=== PATIENT | male | born 1990 ===

== ENCOUNTER 2025-05-19 11:41 | Emergency (ER) | payer MEDICAID, OTHER ==
[~2025-05-19] VITALS: Ht 160 cm; Wt 68.0 kg
[2025-05-19 11:42] VITALS: BP 136/85; PULSE 109; RESP 17; TEMP 98.2; O2SAT 96
== END 2025-05-19 12:37 | disposition left against medical advice (07) ==
LOC: ER 11:41
DX: M25.561 Pain in right knee (principal); Z53.21 Procedure and treatment not carried out due to patient leaving prior to being seen by health care provider

== ENCOUNTER 2025-05-30 21:33 | Emergency (ER) | payer MEDICAID ==
[~2025-05-30] VITALS: Ht 160 cm; Wt 68.9 kg
[2025-05-30 21:35] VITALS: BP 136/77; PULSE 111; RESP 16; TEMP 98.3; O2SAT 95
[2025-05-30] MEDS ORDERED: ACETAMINOPHEN 325 MG TAB PO ONE (22:00)
[2025-05-30] MEDS ORDERED: KETOROLAC TROMETH 30 MG/ML 1ML VIAL IM ONE (22:00)
== END 2025-05-30 23:31 | disposition left against medical advice (07) ==
LOC: ER 21:33
DX: R10.9 Unspecified abdominal pain (principal); Z53.21 Procedure and treatment not carried out due to patient leaving prior to being seen by health care provider

== ENCOUNTER 2025-09-26 12:01 | Emergency (ER) | payer MEDICAID, OTHER ==
[~2025-09-26] VITALS: Ht 160 cm; Wt 72.8 kg
[2025-09-26 12:03] VITALS: BP 146/91; PULSE 110; RESP 18; TEMP 97.8; O2SAT 95
== END 2025-09-26 14:39 | disposition left against medical advice (07) ==
LOC: ER 12:01
DX: M79.89 Other specified soft tissue disorders (principal); Z53.21 Procedure and treatment not carried out due to patient leaving prior to being seen by health care provider

== ENCOUNTER 2025-10-07 22:38 | Emergency (ER) | payer OTHER ==
[~2025-10-07] VITALS: Ht 160 cm; Wt 73.3 kg
[2025-10-07 22:41] VITALS: BP 151/96; PULSE 105; RESP 19; TEMP 97.7; O2SAT 98
== END 2025-10-08 02:49 | disposition left against medical advice (07) ==
LOC: ER 22:38
DX: M79.89 Other specified soft tissue disorders (principal); Z53.21 Procedure and treatment not carried out due to patient leaving prior to being seen by health care provider
CPT/HCPCS: 80053; 83605; 83880; 86141